=== PATIENT | female | born 1950 | race Caucasian/White ===

== ENCOUNTER 2017-01-28 15:57 | Emergency (ER) | payer OTHER, MEDICARE ==
[~2017-01-28] VITALS: Ht 172.7 cm; Wt 72.0 kg
[~2017-01-28 15:57] MED LIST: DUONI INH; FERR324T4 PO; HYDRA25 PO; IRBE150T49 PO; LEVO.088 PO; LEVO137T2 PO; LOTR15T TOP; MEDR4PAK3 PO; METHY250 PO; NEBUMIS6 INH; PRED20 PO
[2017-01-28 16:56] VITALS: TEMP 98.9
[2017-01-28 17:00] VITALS: BP 187/95; PULSE 93; RESP 18; O2SAT 100
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
[2017-01-28] MEDS ORDERED: LANS15CA PO (18:13)
[2017-01-28] MEDS ORDERED: SYNT25TA PO (18:13)
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
[2017-01-28] MEDS ORDERED: ROBA500T PO (19:01)
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
[2017-01-28 19:29] VITALS: BP 186/96
== END 2017-01-28 19:33 | disposition home or self-care (01) ==
LOC: NEPE 15:57
DX: S16.1XXA Strain of muscle, fascia and tendon at neck level, initial encounter (principal); S20.212A Contusion of left front wall of thorax, initial encounter; V49.40XA Driver injured in collision with unspecified motor vehicles in traffic accident, initial encounter
CPT/HCPCS: 70450; 72125; 72128; 73000; 99285